=== PATIENT | female | born 1955 | race Caucasian/White ===

== ENCOUNTER 2020-08-31 20:12 | Emergency (ER) | payer OTHER ==
[~2020-08-31] VITALS: Ht 167.6 cm; Wt 79.8 kg
[2020-08-31 20:15] VITALS: BP_SYST 135
[2020-08-31] MEDS ORDERED: MORPHINE 4 MG/ML INJ. SYRINGE IM ONE (20:30)
[2020-08-31] MEDS ORDERED: MORPHINE 4 MG/ML INJ. SYRINGE ONE (20:33)
[2020-08-31] MEDS ORDERED: KETOROLAC TROMETHAMINE 30 MG VIAL IM ONE (21:30)
[2020-08-31 23:03] VITALS: BP_SYST 138
== END 2020-08-31 22:55 | disposition home or self-care (01) ==
LOC: SED 20:12
DX: G89.29 Other chronic pain (principal); M54.5 Low back pain
CPT/HCPCS: 72100; 96372; 99284; J1885; J2270